=== PATIENT | male | born 1990 | race Caucasian/White ===

== ENCOUNTER 2023-10-11 11:54 | Emergency (ER) | payer BC, SELFPAY ==
[~2023-10-11] VITALS: Ht 180.3 cm; Wt 88.6 kg
[2023-10-11 15:09] VITALS: BP 130/73; TEMP 98.4; O2SAT 98
== END 2023-10-11 15:10 | disposition home or self-care (01) ==
LOC: M ED 11:54
DX: K40.90 Unilateral inguinal hernia, without obstruction or gangrene, not specified as recurrent (principal); Z79.82 Long term (current) use of aspirin

== ENCOUNTER → 2023-12-08 | Outpatient (CLI) | payer BC | LOC: M LAB 15:51 | PROVIDERS: ATTEND Family Medicine | DX: R07.9 Chest pain, unspecified (principal) ==

== ENCOUNTER → 2024-07-04 | Outpatient (CLI) | payer BC | LOC: M RAD 06:45 | PROVIDERS: ATTEND Family Medicine | DX: R10.9 Unspecified abdominal pain (principal) ==